=== PATIENT | female | born 1975 | race Two or more races ===

== ENCOUNTER 2017-09-11 08:23 | Emergency (ER) | payer SELFPAY | END 2017-09-11 09:26 | disposition home or self-care (01) | LOC: D.ER 08:23 | DX: R51 Headache (principal); J06.9 Acute upper respiratory infection, unspecified; J45.909 Unspecified asthma, uncomplicated; E11.9 Type 2 diabetes mellitus without complications; I95.9 Hypotension, unspecified ==